=== PATIENT | female | born 1970 | race Caucasian/White ===

== ENCOUNTER 2017-01-16 08:10 | Day surgery (SDC) | payer BC ==
[~2017-01-16] VITALS: Ht 170.2 cm; Wt 90.7 kg
[~2017-01-16 08:10] MED LIST: ASCORBIC ACID500 M3 PO; B-COMPLEX-VITA1 EACH PO; HYDROXYZINE HCL25 MG PO; KRILL OIL 1,001 EACH PO; PROBIOTIC1 EAC1 PO; VIACTIV SOFT C1 EACH PO; VIIBRYD40 MG PO; VITAMIN E400 UNIT PO; WOMEN'S DAILY1 EAC2 PO; [UNRECOGNIZED DRUG - OTHER] PO
[2017-01-16 08:42] VITALS: BP 140/79
[2017-01-16] MEDS ORDERED: TYLENOL WITH C1 EACH PO (12:14)
[2017-01-16 13:10] VITALS: BP 147/92
[2017-01-16 14:16] VITALS: BP 138/88
== END 2017-01-16 14:32 | disposition home or self-care (01) ==
LOC: SDC 08:10
PROC: 0UDB7ZX Extraction of Endometrium, Via Natural or Artificial Opening, Diagnostic (ICD-10-PCS; principal; 2017-01-16)
DX: N92.1 Excessive and frequent menstruation with irregular cycle (principal); N88.2 Stricture and stenosis of cervix uteri; Z53.09 Procedure and treatment not carried out because of other contraindication; E66.01 Morbid (severe) obesity due to excess calories; Z68.42 Body mass index [BMI] 45.0-49.9, adult; Z82.49 Family history of ischemic heart disease and other diseases of the circulatory system; Z80.3 Family history of malignant neoplasm of breast; Z82.62 Family history of osteoporosis; Z82.61 Family history of arthritis; Z80.0 Family history of malignant neoplasm of digestive organs; Z81.1 Family history of alcohol abuse and dependence; Z88.6 Allergy status to analgesic agent
CPT/HCPCS: 88305; J0131; J1100; J1885; J2250; J2405; J3010